=== PATIENT | female | born 1955 | race Caucasian/White ===

== ENCOUNTER 2016-12-16 14:39 | Outpatient (CLI) | payer OTHER ==
--- NOTE | 2016-12-17 15:39 | Mammography Report ---
DIGITAL SCREENING MAMMOGRAM: 12/16/2016 CLINICAL INDICATION: A 61-year-old nulliparous patient, for screening. COMPARISON: 07/2014, 08/2012, 09/2010, 09/2009. TECHNIQUE: Routine CC and MLO projections were obtained of the breasts. FINDINGS: The breasts again demonstrate heterogeneously dense fibroglandular parenchyma bilaterally. Coarse and punctate, typically benign calcifications are present. No suspicious masses, clustered mi crocalcifications, or regions of architectural distortion are identified. IMPRESSION: BENIGN FINDINGS. RECOMMENDATION: ROUTINE ANNUAL SCREENING UNLESS OTHERWISE CLINICALLY INDICATED. BIRADS CATEGORY 2-BENIGN FINDINGS. STANDARD QUALIFYING STATEMENTS 1. This examination was reviewed with the aid of Computer-Aided Detection (CAD). 2. A negative or benign imaging report should not delay biopsy if clinically suspicious findings are present. Consider surgical consultation if warranted. More than 5% of cancers are not identified by i maging. 3. Dense breasts may obscure an underlying neoplasm. JOB #: [id number] EXT JOB #:[id number]
== END 2016-12-16 14:40 | disposition home or self-care (01) ==
LOC: DI 14:39
PROVIDERS: ATTEND Naturopath
DX: Z12.31 Encounter for screening mammogram for malignant neoplasm of breast (principal)
CPT/HCPCS: 77067

== ENCOUNTER 2016-12-16 14:39 | Outpatient (CLI) | payer OTHER ==
--- NOTE | 2016-12-17 16:15 | DEXA Report ---
DEXA SCAN: 12/16/2016 CLINICAL INDICATION: Postmenopausal TECHNIQUE: Dual energy x-ray absorptiometry (DXA) was performed on a [employer] system. Regions measured are the AP spine, femoral neck, and, if needed, forearm. COMPARISON: None. In accordance with the International Society for Clinical Densitometry (ISCD) guidelines, data from previous exams may be reanalyzed using current recommendations and techniques. This is done to allow a more accurate basis for comparison with the current study. FINDINGS The data for the lumbar spine is as follows: REGION BMD (g/cm/cm) T-SCORE Z-SCORE L1 0.866 -2.2 -0.8 L2 0.846 -3.0 -1.6 L3 0.979 -1.8 -0.4 L4 0.955 -2.0 -0.7 TOTAL 0.914 -2.2 -0.8 NOTE: All evaluable vertebrae are used for classification. The data for the hip is as follows: REGION BMD (g/cm/cm) T-SCORE Z-SCORE Neck 0.660 -2.7 -1.4 TOTAL 0.705 -2.4 -1.3 IMPRESSION: THE WHO CLASSIFICATION BASED ON THE INTERNATIONAL REFERENCE STANDARD IS OSTEOPOROSIS. THE FRACTURE RISK IS HIGH. RECOMMENDATION: Patients with diagnosis of osteoporosis or osteopenia should have regular bone mineral density assessment. For those eligible for Medicare, routine testing is allowed once every 2 years. Testing frequency can be increased for patients who have rapidly progressing disease or for those who are receiving medical therapy to restore bone mass. COMMENT: World Health Organization (WHO) definitions for osteoporosis and osteopenia: NORMAL BMD: T-score at -1.0 or higher, fracture risk is low. OSTEOPENIA BMD: T-score between -1.0 and -2.5, fracture risk is increased. OSTEOPOROSIS BMD: T-score at -2.5 or lower, fracture risk high. National Osteoporosis Foundation recommends: 1. Obtain adequate dietary calcium (at least 1200 mg per day) and vitamin D (400 -800 international units per day). 2. Participate, as appropriate, in regular weightbearing and muscle- strengthening exercise. 3. Avoid tobacco use and reduce alcohol and caffeine intake. 4. For more detailed information see the website at www.NOF.org. MTDD
== END 2016-12-16 14:40 | disposition home or self-care (01) ==
LOC: DI 14:39
PROVIDERS: ATTEND Naturopath
DX: Z13.820 Encounter for screening for osteoporosis (principal); M81.0 Age-related osteoporosis without current pathological fracture
CPT/HCPCS: 77080

== ENCOUNTER 2017-11-26 12:05 | Outpatient (CLI) | payer OTHER ==
--- NOTE | 2017-11-26 13:19 | XRAY Report ---
Reason: LEFT TOE PINKY PAIN Procedure Date: 11/26/2017 Accession Number: [id number] / [id number] Procedure: XR - Toe(s) LT CPT Code: FULL RESULT: EXAM: LEFT TOE RADIOGRAPHY EXAM DATE: 11/26/2017 01:08 PM. CLINICAL HISTORY: LEFT TOE PINKY PAIN. COMPARISON: None. TECHNIQUE: 3 views. FINDINGS: Bones: No acute fracture. Joints: Normal. No subluxation. Soft Tissues: Mild soft tissue swelling. IMPRESSION: No acute osseus abnormality. RADIA
== END 2017-11-26 12:06 | disposition home or self-care (01) ==
LOC: DI 12:05
PROVIDERS: ATTEND Physician Assistant
DX: M79.675 Pain in left toe(s) (principal)
CPT/HCPCS: 73660

== ENCOUNTER 2018-01-05 18:50 | Outpatient (CLI) | payer OTHER ==
--- NOTE | 2018-01-06 10:15 | Ultrasound Report ---
Reason: ABNORMAL VAGINAL BLEEDING Procedure Date: 01/05/2018 Accession Number: [id number] / [id number] Procedure: US - Pelvic w/Transvaginal CPT Code: FULL RESULT: EXAM: PELVIC ULTRASOUND EXAM DATE: 01/05/2018 07:19 PM. CLINICAL HISTORY: Postmenopausal bleeding. COMPARISON: None. TECHNIQUE: Realtime transabdominal pelvic scan performed to identify the uterus and adnexa and as an overview of other pelvic structures, followed by transvaginal scan to provide greater detail of the uterus and adnexa, with static image documentation. FINDINGS: Uterus: 7.4 x 4.6 x 4.0 cm, volume 70.8 cc. Anteverted position. Normal overall size and echotexture. Masses: Process Safety Specialist uterine fibroids include the followin. 0.9 x 0.9 x 0.8 cm anterior fundal hypoechoic mass. 2. 0.9 x 1.3 x 0.9 cm posterior fundal hypoechoic mass. 3. 2.5 x 2.3 x 2.2 cm anterior hypoechoic mass. Endometrium: 12.2 mm. No focal endometrial mass or polyp. Endometrium is diffusely thickened and mildly hyperemic. Cervix: Unremarkable. Right Ovary: Ovary not seen. No adnexal abnormality. Limitation secondary to bowel gas. Left Ovary: Ovary not seen. No adnexal abnormality. Limitation secondary to bowel gas. Free Fluid: None. Other: None. IMPRESSION: 1. Heterogeneous and thickened endometrium measures 12.7 mm. No focal mass. Vascularity noted. Differential includes hyperplasia versus endometrial carcinoma. If symptoms persist, recommend endometrial sampling. 2. Multiple uterine fibroids. 3. Neither ovary seen. No adnexal lesions. RADIA
== END 2018-01-05 18:51 | disposition home or self-care (01) ==
LOC: DI 18:50
PROVIDERS: ATTEND Internal Medicine
DX: N93.9 Abnormal uterine and vaginal bleeding, unspecified (principal); D25.9 Leiomyoma of uterus, unspecified
CPT/HCPCS: 76830; 76856

== ENCOUNTER 2018-02-07 17:58 | Outpatient (CLI) | payer OTHER ==
[2018-02-07 18:24] LABS: BASOPHILS # (AUTO) 0.1 10^3/uL (0.0-0.1); BASOPHILS % (AUTO) 0.9 %; EOSINOPHILS # (AUTO) 0.2 10^3/uL (0.0-0.7); EOSINOPHILS % (AUTO) 2.7 %; HGB - HEMOGLOBIN 14.6 g/dL (12.0-16.0); LYMPHOCYTES # (AUTO) 2.5 10^3/uL (1.5-3.5); LYMPHOCYTES % (AUTO) 35.6 %; MEAN CORPUSCULAR HEMOGLOBIN 31.2 pg (27.0-31.0); MEAN CORPUSCULAR HGB CONC 34.3 g/dL (32.0-36.0); MEAN CORPUSCULAR VOLUME 90.9 fL (81.0-99.0); MEAN PLATELET VOLUME 7.1 fL (7.9-10.8); MONOCYTES # (AUTO) 0.5 10^3/uL (0.0-1.0); MONOCYTES % (AUTO) 7.9 %; NEUTROPHILS # (AUTO) 3.7 10^3/uL (1.5-6.6); NEUTROPHILS % (AUTO) 52.9 %; PLT - PLATELET COUNT 343 10^3/uL (130-450); RED BLOOD COUNT 4.67 10^6/uL (4.20-5.40); RED CELL DISTRIBUTION WIDTH 13.6 % (12.0-15.0); WHITE BLOOD COUNT 6.9 x10^3/uL (4.8-10.8)
[2018-02-07 18:38] LABS: ALBUMIN 4.5 g/dL (3.2-5.5); ALBUMIN/GLOBULIN RATIO 1.4 (1.0-2.2); BILIRUBIN,TOTAL 0.8 mg/dL (0.2-1.0); CALCIUM 9.5 mg/dL (8.5-10.3); CREATININE 0.6 mg/dL (0.4-1.0); TOTAL PROTEIN 7.8 g/dL (6.7-8.2)
[2018-02-07 19:20] LABS: BILIRUBIN,URINE NEGATIVE (NEGATIVE); GLUCOSE, URINE (UA) NEGATIVE (NEGATIVE); KETONES,URINE (UA) TRACE mg/dL (NEGATIVE); LEUKOCYTE ESTERASE, URINE TRACE (NEGATIVE); NITRITE,URINE NEGATIVE (NEGATIVE); OCCULT BLOOD,URINE MODERATE (NEGATIVE); PH,URINE 5.5 PH (5.0-7.5); PROTEIN,URINE NEGATIVE (NEGATIVE); UROBILINOGEN,URINE 0.2 (NORMAL) E.U./dL (NORMAL)
[2018-02-07 19:33] LABS: CLARITY,URINE CLEAR (CLEAR)
== END 2018-02-07 17:59 | disposition home or self-care (01) ==
LOC: LAB 17:58
PROVIDERS: ATTEND Obstetrics & Gynecology
DX: Z01.812 Encounter for preprocedural laboratory examination (principal); N95.0 Postmenopausal bleeding; N83.00 Follicular cyst of ovary, unspecified side
CPT/HCPCS: 36415; 80053; 81003; 85025; 86850; 86900; 86901

== ENCOUNTER 2018-02-07 20:52 | Outpatient (CLI) | payer OTHER | END 2018-02-07 20:53 | disposition home or self-care (01) | LOC: LAB 20:52 | PROVIDERS: ATTEND Internal Medicine | DX: Z53.9 Procedure and treatment not carried out, unspecified reason (principal) ==

== ENCOUNTER 2018-02-08 11:51 | Day surgery (SDC) | payer OTHER ==
--- NOTE | 2018-02-08 02:14 | HISTORY & PHYSICAL EXAMINATION ---
DATE OF SERVICE: 02/08/2018 Physician: Kvng Huertas MD DIAGNOSES 1. Postmenopausal bleeding. 2. Thickened endometrium (12 mm). 3. Multiple uterine leiomyoma. 4. Failed endometrial biopsy attempt in the office. 5. Stenotic/contorted endocervix. INTENDED PROCEDURE: Diagnostic hysteroscopy with endometrial stripping using MyoSure device, possible myomectomy; endocervical curettage. HISTORY OF PRESENT ILLNESS: Patient is a 63-year-old 1, para 0-0-1-0 woman who notes bouts of postmenopausal bleeding and subsequent transvaginal ultrasound documented a 12 mm endometrial stripe. An attempt at office EMB was done, but her multiple fibroids distorted and blocked the endocervical passage despite a cervical dilation attempted in the office. The office EMB was very painful, prompting hysteroscopy. PAST MEDICAL HISTORY: Asthma, which is currently quiescent. PAST SURGICAL HISTORY 1. Termination of in 1980. 2. Attempted endometrial biopsy on 01/17/2018. ALLERGIES: PET DANDER AND POLLEN. MEDICATIONS: Misoprostol 400 mcg per vagina the day prior to surgery. REVIEW OF SYSTEMS: No fevers, chills, weakness or recent unaccounted for weight change. REVIEW OF SYSTEMS HEENT: Negative except for postnasal drip. CARDIOVASCULAR: Negative. RESPIRATORY: Currently negative, asthma quiescent. GASTROINTESTINAL: Negative. UROGENITAL: Reference HPI. No UTI symptoms. MUSCULOSKELETAL: Negative. SKIN: Negative. NEUROLOGIC: Negative. PSYCHIATRIC: Negative. ENDOCRINE: Negative. HEMATOLOGIC LYMPHATIC: Negative. The patient reports no easy bleeding tendencies. FAMILY HISTORY: Depression and alcoholism. Mother alcoholism, sister osteoporosis, grandmother asthma, grandmother arthritis, grandfather lung cancer. SOCIAL HISTORY: No drug, tobacco or alcohol use. 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 PHYSICAL EXAMINATION GENERAL: Well groomed, pleasant. No distress, alert and oriented. VITAL SIGNS: Weight 152 pounds, 63 inches, blood pressure 118/76. SKIN: Normal color and turgor, without rashes. HEENT: Head atraumatic. No thyromegaly. EOMI. Good dentition. NECK: Supple. CARDIOVASCULAR: Regular rate and rhythm. No murmur, no gallop. LUNGS: No wheezes, rales. ABDOMEN: Nondistended. No guarding. Normal bowel sounds. No evident herniation. PELVIC: Vulva: No lesions, slight atrophy. Vagina: Cystocele. Cervix: No cervical motion or tenderness, stenotic os. Uterus: Mobile, slightly enlarged. Adnexa: Could not feel any masses or tenderness noted. EXTREMITIES: Normal range of motion. No deformities or evident arthritides. IMPRESSION: Postmenopausal bleeding with endometrial thickening. The patient has documented postmenopausal bleeding with significantly thickened endometrium that requires tissue diagnosis. However, fibroids have contorted the endocervical canal. We will use preoperative Cytotec to soften the cervical tissue to ease dilation to access the endometrium. PLAN 1. Preoperative Cytotec. 2. If the canal cannot be easily negotiated, may request ultrasound to help guide dilation to the endometrial cavity. 3. Once in the endometrial cavity, we will use MyoSure to denude as much of the cavity as possible. Additionally, if there are any submucosal fibroids found, they will be shelled out at the same time. The patient had a detailed preoperative informed consent session. She is aware of the risk of blood loss, transfusion, infection, perforation, fluid transfer. She is aware that the dilation phase and hysteroscope insertion phase will probably be difficult increasing the possibility of perforation. If perforation occurs laparoscopy will be necessary to ensure there is no traumatic damage to internal viscera. She is also aware that if extreme hemorrhage is encountered and not controlled, there is a possibility of a hysterectomy. This is not felt to be likely. ACOG Brochure on hysteroscopy was reviewed. TD: 02/07/2018 19:02 MARITZA
[~2018-02-08 11:51] MED LIST: BUPIVACAINE 0.25%-EPI 1:200000 PF 30 ML VIAL ONE
[2018-02-08] MEDS ORDERED: LACTATED RINGERS 1,000 ML IV ONE ×2 (12:34→16:00)
--- NOTE | 2018-02-08 14:16 | ANESTHESIA ---
Pre-Anesthesia VS, & Labs - Diagnosis Post menopausal bleeding - Procedure Diagnostic hysteroscopy Vital Signs: Temp Pulse Resp BP Pulse Ox 36.1 C L 72 18 147/82 H 98 02/08/18 12:04 02/08/18 12:04 02/08/18 12:04 02/08/18 12:04 02/08/18 12:04 Height 5 ft 3 in Weight (kg) 67.7 kg - NPO >8 hours Last Fluid Intake: water at 1000 - Is Patient ?: No - Lab Results Lab results reviewed: No Home Medications and Allergies Home Medications: Ambulatory Orders FLUoxetine [PROzac] 10 mg PO DAILY 02/08/18 Fluticasone [Flonase] 1 sprays ASHLEY DAILY 02/08/18 Mometasone/Formoterol [Dulera 100 Mcg/5 Mcg Inhaler] 8.8 gm IH 02/08/18 Thyroid,Pork [Nature-Throid] 48.75 mg PO 02/08/18 FLUoxetine [PROzac] 10 mg PO DAILY 02/08/18 Fluticasone [Flonase] 1 sprays ASHLEY DAILY 02/08/18 Mometasone/Formoterol [Dulera 100 Mcg/5 Mcg Inhaler] 8.8 gm IH 02/08/18 Thyroid,Pork [Nature-Throid] 48.75 mg PO 02/08/18 Anes History & Medical History - Anesthetic History Anesthesia Complications: reports: No previous complications Family history of Anesthesia Complications: Denies Family history of Malignant Hyperthermia: Denies - Medical History Cardiovascular: reports: None Pulmonary: reports: Asthma Gastrointestinal: reports: None Urinary: reports: None Neuro: reports: None Musculoskeletal: reports: Osteoarthritis Endocrine/Autoimmune: reports: None Blood Disorders: reports: None Skin: reports: None Smoking Status: Never smoker Psychosocial: reports: No issues indicated - Surgical History General: Colonoscopy Eyes Ears Nose Throat (EENT): Tonsil/Adenoidectomy Exam General: Alert Dental: TMJ Mouth Opening: Greater than 4 Fingerbreadths Neck Mobility: Normal Mallampati classification: II Thyromental Distance: 4-6 cm Respiratory: Lungs clear, Normal breath sounds Cardiovascular: Regular rate Mental/Cognitive Status: Alert/Oriented X3 Cognitive Status: Within normal limits Plan Anesthesia Type: General Consent for Procedure(s) Verified and Reviewed: Yes Code Status: Attempt Resuscitation ASA classification: 1-Healthy patient Is this case an emergency?: No
[2018-02-08] MEDS ORDERED: fentaNYL 100 MCG/2 ML VIAL IVP ONE (16:05)
[2018-02-08] MEDS ORDERED: LIDOCAINE-MPF 2% 5 ML VIAL IM ONE (16:05)
[2018-02-08] MEDS ORDERED: PROPOFOL 200 MG/20 ML VIAL IVP ONE (16:05)
[2018-02-08] MEDS ORDERED: ONDANSETRON 4 MG/2 ML VIAL IVP ONE (16:05)
[2018-02-08] MEDS ORDERED: MIDAZOLAM 2 MG/2 ML VIAL IVP ONE (16:05)
[2018-02-08] MEDS ORDERED: DEXAMETHASONE 4 MG/ML VIAL IVP ONE (16:05)
[2018-02-08] MEDS ORDERED: KETOROLAC 30 MG/ML VIAL ONE (16:43)
[2018-02-08] MEDS ORDERED: ONDANSETRON 4 MG/2 ML VIAL ONE (16:50)
[2018-02-08] MEDS: HYDROmorphone 1 MG/ML CARPUJECT ONE ×2 (16:54→17:06)
--- NOTE | 2018-02-08 17:21 | OPERATIVE REPORT ---
Operative Report - General Pre-Op Diagnosis: Postmenopausal bleeding and thickened endometrium on ultrasound Procedure Performed: Diagnostic hysteroscopy; hysteroscopic excision of tumor using Myosure; hysteroscopic myomectomy with mild Myosure Post Op Diagnosis: Uterine leiomyoma; filiform endometrial tumor, await pathology - Procedure Note Primary Surgeon: Kvng Huertas MD, FACOG Anesthesia Provider: Michael Goss, certified nurse lifestyle coordinator Anesthesia Technique: General ET tube Pathology: Endometrial shavings & Myomectomy specimens sent IV Fluids (mL): 800 Estimated Blood Loss (mL): 50 Urine Output (mL): 0 (Patient straight catheter prior to procedure) Complications: None - Other Other Information/Narrative: Prior to procedure I met the patient and her in the preop holding all room and reviewed indications, mechanics and risk/benefits. All questions were answered. Informed consent documents signed. Patient was placed on the OR table in the supine position. She was uneventfully induced and intubated. She was prepped and draped in his customary sterile fashion. She was moved to the low dorsal lithotomy position on mobile stirrups. Timeout briefing was done per protocol. Weighted speculum was placed in the posterior vagina and the cervix well visualized. Anterior cervical lip was grasped with single-tooth tenaculum. Serial application of Hegar probes was used to dilate the endocervix to size 6. Hysteroscope was then inserted through the endocervical canal but partially blocked by an anterior fibroid. Myosure device was then used to shave down that fibroid in order to gain access into the endometrial cavity. The endometrial cavity was assessed: small fibroids were found and a significant Endometrial tumor in the fundus of the uterus. The tumor had a filiform appearance and is uncertain if it was hyperplasia or malignancy. Myosure device was then used to shave the tumor and obtain an adequate pathological specimen. A obscuring fibroid in the cavity was then removed using my Myosure. The procedure was completed. All instruments were removed from the vagina. Fluid deficit was 700. Vaginal packing was placed. All sponge needle and instrument counts were confirmed as correct. Patient was uneventfully awakened from general anesthesia and taken to the recovery room in good condition. Intraoperative photos and findings were reviewed with the family. Patient is discharged to home and will be seen next week for review of final pathology. Warning sign and callback instructions were given. Patient is to take Motrin 600 mg every 6 hours for pain.
--- NOTE | 2018-02-08 17:34 | Discharge Plan ---
Discharge Plan Disposition: 01 Home, Self Care Condition: Good Diet: Regular Activity Restrictions: Activity as Tolerated Shower Restrictions: No Driving Restrictions: No Weight Bearing: Full Weight No Smoking: If you smoke, Please STOP! Call for help. Follow-up with: Kvng Huertas MD [Provider Admit Priv/Credential] -
[2018-02-08 17:43] VITALS: BP 128/62
[2018-02-08] MEDS ORDERED: IBUPROFEN 600 MG TABLET PO SCH (18:00)
[2018-02-09] MEDS ORDERED: DOCUSATE SODIUM 250 MG CAPSULE PO SCH (09:00)
[2018-02-09] MEDS ORDERED: LACTULOSE 10 GM /15 ML UDC PO SCH (09:00)
== END 2018-02-08 11:52 | disposition home or self-care (01) ==
LOC: SDS 11:51
PROVIDERS: ATTEND Obstetrics & Gynecology
PROC: 0UB98ZZ Excision of Uterus, Via Natural or Artificial Opening Endoscopic (ICD-10-PCS; principal; 2018-02-08 13:00)
DX: C54.1 Malignant neoplasm of endometrium (principal); D25.9 Leiomyoma of uterus, unspecified; N88.2 Stricture and stenosis of cervix uteri; N95.0 Postmenopausal bleeding; J45.909 Unspecified asthma, uncomplicated
CPT/HCPCS: 58558; J1170; J7120

== ENCOUNTER 2018-02-18 10:37 | Outpatient (CLI) | payer OTHER ==
[2018-02-18] MEDS ORDERED: IOPAMIDOL-300 100 ML VIAL IVP ONE ×2 (10:38→11:42)
[2018-02-18] MEDS ORDERED: IOPAMIDOL-300 100 ML VIAL ONE (10:47)
--- NOTE | 2018-02-18 14:17 | CT Report ---
Reason: MALIGNANT NEOPLASM OF ENDOMETRIUM Procedure Date: 02/18/2018 Accession Number: [id number] / [id number] Procedure: CT - Abdomen/Pelvis W/ CPT Code: FULL RESULT: EXAM: CT ABDOMEN AND PELVIS EXAM DATE: 02/18/2018 11:44 AM. CLINICAL HISTORY: MALIGNANT NEOPLASM OF ENDOMETRIUM. COMPARISONS: Pelvic ultrasound from 01/05/2018. TECHNIQUE: Routine helical CT imaging was performed through the abdomen and pelvis. IV contrast: 100 cc Isovue-300. Enteric contrast: Yes. Reconstructions: Coronal and sagittal. In accordance with CT protocol optimization, one or more of the following dose reduction techniques were utilized for this exam: automated exposure control, adjustment of mA and/or KV based on patient size, or use of iterative reconstructive technique. FINDINGS: Lung Bases: Unremarkable. Liver: There is mild diffuse low attenuation, compatible with steatosis. No focal lesions are demonstrated. Gallbladder/Bile Ducts: Multiple gallstones demonstrated. Gallbladder is decompressed. Proximal common bile duct measures 8 mm (series 5, image 25). This is mildly dilated; however, no intrahepatic ductal dilation is demonstrated. No filling defects demonstrated in the distal common bile duct. Spleen: Within normal limits. Pancreas: Unremarkable. Adrenal Glands: No nodules. Kidneys: Subcentimeter hypoattenuating focus in the interpolar region of the right kidney (series 3, image 27) is too small to characterize. Kidneys otherwise unremarkable. Peritoneal Cavity/Bowel: No evidence of bowel obstruction or inflammation. Appendix is within normal limits. There is diverticulosis, greatest in the sigmoid colon. No evidence for acute diverticulitis. Pelvic Organs: There is a partially calcified fibroid in the anterior aspect of the lower uterine segment/body, measuring approximately 3.9 x 3.7 cm (series 3, image 61). There is additional density in the posterior uterine fundus (series 3, image 61), which may represent smaller fibroid. The endometrium is not well evaluated by CT. However, no gross endometrial thickening appreciated. No pelvic adenopathy or free fluid. Urinary bladder is unremarkable. Vasculature: No abdominal aortic aneurysm. Bones: No suspicious osseous lesion. Other: No retroperitoneal adenopathy. IMPRESSION: 1. Endometrium is not well evaluated by CT but does not appear grossly thickened. 2. No findings suspicious for metastatic disease in the abdomen or pelvis. 3. Fibroid uterus. 4. Cholelithiasis. 5. Mild dilation of the proximal common bile duct without intrahepatic biliary ductal dilation. This may represent normal variant configuration. However, suggest correlation with serum bilirubin. 6. Mild hepatic steatosis. RADIA
== END 2018-02-18 10:38 | disposition home or self-care (01) ==
LOC: DI 10:37
PROVIDERS: ATTEND Obstetrics & Gynecology
DX: C54.1 Malignant neoplasm of endometrium (principal); D25.9 Leiomyoma of uterus, unspecified; K80.20 Calculus of gallbladder without cholecystitis without obstruction; K76.0 Fatty (change of) liver, not elsewhere classified
CPT/HCPCS: 74177; Q9967

== ENCOUNTER 2018-04-01 11:16 | Outpatient (CLI) | payer OTHER | END 2018-04-01 11:17 | disposition home or self-care (01) | LOC: RT 11:16 | PROVIDERS: ATTEND Obstetrics & Gynecology Gynecologic Oncology | DX: Z01.810 Encounter for preprocedural cardiovascular examination (principal); C54.1 Malignant neoplasm of endometrium | CPT/HCPCS: 93005 ==

== ENCOUNTER 2018-09-13 09:57 | Outpatient (CLI) | payer OTHER ==
--- NOTE | 2018-09-14 09:56 | MRI Report ---
Reason: R SHOULDER PAIN Procedure Date: 09/13/2018 Accession Number: [id number] / [id number] Procedure: MRI - Shoulder RT W/O CPT Code: FULL RESULT: EXAM: RIGHT SHOULDER MRI WITHOUT CONTRAST EXAM DATE: 09/13/2018 11:59 AM. CLINICAL HISTORY: Right shoulder pain. COMPARISON: None. TECHNIQUE: Multiplanar, multisequence T1-weighted and fluid-sensitive sequences of the shoulder without contrast. Other: None. FINDINGS: Acromioclavicular Region: The acromion is type II. AC joint is moderately osteoarthritic. Some synovial hypertrophic changes are present, and there is a small joint effusion. The coracoacromial and coracoclavicular ligaments are intact. Some bursal fluid is present. Glenohumeral Region: No subluxation. No effusion or loose bodies. The articular cartilage is unremarkable. The glenohumeral ligaments and joint capsule are unremarkable. Bone Marrow: No fracture, marrow edema or bone lesions. Labrum: Some abnormal increased T2 signal is seen at the superior margin of the labrum. Series 501 image 11. Musculature/Rotator Cuff: No acute partial-thickness undersurface tear involves about 90% of the anterior undersurface of the supraspinatus. Series 701 image 20, series 501 image 6. Remainder of the supraspinatus is thickened and shows some increased T2 signal. Infraspinatus likewise is thickened with increased T2 signal. Subscapularis and teres minor are normal. Biceps Tendon: The long head of the biceps tendon and biceps chapo are intact. Other: The subcutaneous tissues are unremarkable. IMPRESSION: 1. Type II unipartite undersurface osseous acromion shape. AC joint is moderately osteoarthritic. Synovial hypertrophic changes are present, and there is a small joint effusion. Some bursal fluid also noted. 2. Some increased T2 signal at the undersurface of the superior margin of the labrum near the biceps labral attachment. This may be a type I SLAP lesion characterized without contrast in the joint. 3. Partial-thickness undersurface tear involves the anterior distal 90% of the supraspinatus. Remainder of the supraspinatus and infraspinatus also show some moderate tendinitis. Subscapularis and teres minor are normal. 4. Biceps tendon has a normal appearance. Articular cartilage also appears unremarkable. RADIA
== END 2018-09-13 09:58 | disposition home or self-care (01) ==
LOC: DI 09:57
PROVIDERS: ATTEND Internal Medicine
DX: M19.011 Primary osteoarthritis, right shoulder (principal); M75.101 Unspecified rotator cuff tear or rupture of right shoulder, not specified as traumatic

== ENCOUNTER 2019-02-16 09:10 | Outpatient (CLI) | payer OTHER ==
--- NOTE | 2019-02-19 11:05 | Mammography Report ---
Reason: ROUTINE MAMMO Procedure Date: 02/16/2019 Accession Number: [id number] / [id number] Procedure: MGN - Screening Mammo Dig Bilat CPT Code: Final Report FULL RESULT: EXAM: Screening Mammo Dig Bilat DATE: 02/16/2019 9:33 AM CLINICAL HISTORY: The patient is an asymptomatic 64-year-old female. Nulliparous. Personal history of endometrial carcinoma. No reported family history of breast cancer. TECHNIQUE: (B) - Bilateral CC and MLO views were obtained. COMPARISON: 12/16/2016, 08/01/2014, 08/23/2012 PARENCHYMAL PATTERN: (D) - The breasts demonstrate heterogeneously dense fibroglandular parenchyma bilaterally. This limits mammographic sensitivity. FINDINGS: The pattern of nodular asymmetry is stable given positional variation. Loosely grouped and scattered calcifications again noted bilaterally. There are no suspicious masses, calcifications, or areas of distortion. IMPRESSION: Benign findings. BI-RADS category 2. RECOMMENDATION: (ANNUAL) - Recommend routine annual screening mammography. BI-RADS CATEGORY: (2) - Benign Findings. STANDARD QUALIFYING STATEMENTS: 1. This examination was not reviewed with the aid of Computer-Aided Detection (CAD). 2. A negative or benign imaging report should not preclude biopsy if clinically suspicious findings are present. 3. Dense breasts may obscure an underlying neoplasm.
== END 2019-02-16 09:11 | disposition home or self-care (01) ==
LOC: DI.N 09:10
PROVIDERS: ATTEND Internal Medicine
DX: Z12.31 Encounter for screening mammogram for malignant neoplasm of breast (principal)
CPT/HCPCS: 77067

== ENCOUNTER 2020-05-14 10:42 | Outpatient (CLI) | payer MEDICARE, OTHER ==
--- NOTE | 2020-05-14 16:03 | DEXA Report ---
PROCEDURE: Dexa Spine and/or Hip INDICATIONS: OSTEOPOROSIS TECHNIQUE: Dual energy x-ray absorptiometry (DXA) was performed on a [employer] System. Regions measur ed are the AP Spine, femoral neck, and if needed forearm. COMPARISON: 11/26/2016. FINDINGS: Lumbar Spine: Bone Mineral Density 0.924 g/cm/cm,T score -2.1, osteopenia Left Hip: Bone Mineral Density 0.782 g/cm/cm,T score -1.8, osteopenia Left Femoral Neck: Bone Mineral Density 0.645 g/cm/cm, T score -2.8, osteoporosis (T score greater or equal to -1.0: NORMAL) (T score from -1.1 to -2.4: OSTEOPENIA) (T score less than or equal to -2.5 to: OSTEOPOROSIS) Impression: Osteoporosis. Bone mineral density has increased approximately 10.9% in the interval sin e prior exam obtained 12/08/2016. Patients with diagnosis of osteoporosis or osteopenia should have regular bone mineral density assess ment. For those eligible for Medicare, routine testing is allowed once every 2 years. Testing frequ ency can be increased for patients who have rapidly progressing disease or for those who are receivin g medical therapy to restore bone mass. Reviewed by: Danii Roberts MD, PhD on 05/14/2020 4:01 PM PST Approved by: Danii Roberts MD, PhD on 05/14/2020 4:01 PM PST Station ID: [id number]
== END 2020-05-14 10:43 | disposition home or self-care (01) ==
LOC: DI 10:42
PROVIDERS: ATTEND Internal Medicine
DX: M81.0 Age-related osteoporosis without current pathological fracture (principal)

== ENCOUNTER 2020-06-04 09:11 | Day surgery (SDC) | payer MEDICARE, OTHER ==
[2020-06-04] MEDS ORDERED: LACTATED RINGERS 1,000 ML IV ONE ×2 (09:41→10:45)
[2020-06-04] MEDS ORDERED: MIDAZOLAM 2 MG/2 ML VIAL ONE ×3 (10:13→10:34)
[2020-06-04] MEDS ORDERED: fentaNYL 250 MCG/5 ML VIAL ONE (10:13)
[2020-06-04 11:20] VITALS: BP 128/75
== END 2020-06-04 09:12 | disposition home or self-care (01) ==
LOC: SDS 09:11
PROVIDERS: ATTEND Surgery
DX: Z12.11 Encounter for screening for malignant neoplasm of colon (principal); K57.30 Diverticulosis of large intestine without perforation or abscess without bleeding; K64.8 Other hemorrhoids; Z86.010 Personal history of colon polyps
CPT/HCPCS: G0105; J3010; J7120

== ENCOUNTER 2020-06-18 09:24 | Outpatient (CLI) | payer MEDICARE, OTHER ==
--- NOTE | 2020-06-19 08:24 | Mammography Report ---
BILATERAL DIGITAL SCREENING MAMMOGRAM 3D/2D: 06/18/2020 CLINICAL: Routine screening. Comparison is made to exams dated: 02/16/2019 mammogram, 12/16/2016 mammogram, 08/01/2014 mammogram, mammogram, and 10/13/2010 mammogram - [facility]. The tissue of both breast s is heterogeneously dense. This may lower the sensitivity of mammography. There is a developing 1.5 cm asymmetry with a spiculated margin and punctate calcifications in the ri ght breast at 11 o'clock posterior depth. There is a possible irregular asymmetry with a spiculated margin in the left breast middle depth cent ral to the nipple seen on the craniocaudal view only. No other significant masses or calcifications are seen in either breast. IMPRESSION: INCOMPLETE: NEEDS ADDITIONAL IMAGING EVALUATION The developing 1.5 cm asymmetry in the right breast at 11 o'clock posterior depth is indeterminate. Additional views with possible ultrasound are recommended. The possible irregular asymmetry in the left breast middle depth central to the nipple seen on the cr aniocaudal view only is indeterminate. Additional views with possible ultrasound are recommended. This exam was interpreted at Station ID: [id number]. NOTE: For mammograms, a report in lay terms will be sent to the patient. Approximately 15% of breast malignancies will not be visualized mammographically. In the management of a palpable breast mass, a negative mammogram must not discourage biopsy of a clinically suspicious lesion. Electronically Signed By: Maia goodwin/:06/18/2020 10:25:12 ACR BI-RADS Category 0: Incomplete 3340F PARENCHYMAL PATTERN: (D) - The breast(s) demonstrate(s) heterogeneously dense fibroglandular parchivoy ma. BI-RADS CATEGORY: (0) - 0 Mammo and [place] [id number] Immediate follow-up LATERALITY: (B)
== END 2020-06-18 09:25 | disposition home or self-care (01) ==
LOC: DI.N 09:24
PROVIDERS: ATTEND Internal Medicine
DX: Z12.31 Encounter for screening mammogram for malignant neoplasm of breast (principal); R92.8 Other abnormal and inconclusive findings on diagnostic imaging of breast

== ENCOUNTER 2020-07-10 08:23 | Outpatient (CLI) | payer MEDICARE, OTHER ==
--- NOTE | 2020-07-11 09:36 | Mammography Report ---
BILATERAL DIGITAL DIAGNOSTIC MAMMOGRAM 3D/2D: 07/10/2020 CLINICAL: Patient returns today to evaluate a focal asymmetry in the left breast. Patient returns for magnification views of microcalcifications in the right breast. Comparison is made to exams dated: 06/18/2020 mammogram, 02/16/2019 mammogram, 12/16/2016 mammogram, a nd 08/01/2014 mammogram - [facility]. The tissue of both breasts is heterogeneously dense. This may lower the sensitivity of mammography. There is a 1.2 cm round mass with a spiculated margin and punctate calcifications in the right breast at 10 o'clock posterior depth. There is a possible asymmetry in the left breast middle depth central to the nipple seen on the crani ocaudal view only. This is not seen in additional views. No other significant masses or calcifications are seen in either breast. IMPRESSION: INCOMPLETE: NEEDS ADDITIONAL IMAGING EVALUATION 1) The 1.2 cm round mass in the right breast at 10 o'clock posterior depth is indeterminate. -A targeted ultrasound is recommended and will immediately follow. 2) Possible asymmetry in the left breast does not persist on additional views and is benign. This exam was interpreted at Station ID: [id number]. NOTE: For mammograms, a report in lay terms will be sent to the patient. Approximately 15% of breast malignancies will not be visualized mammographically. In the management of a palpable breast mass, a negative mammogram must not discourage biopsy of a clinically suspicious lesion. Electronically Signed By: aLlo Wilson M.D. slc/:07/10/2020 12:05:23 ACR BI-RADS Category 0: Incomplete 3340F PARENCHYMAL PATTERN: (D) - The breast(s) demonstrate(s) heterogeneously dense fibroglandular parchivoy ma. BI-RADS CATEGORY: (0) - 0 Ultrasound [id number] Immediate follow-up LATERALITY: (B)
--- NOTE | 2020-07-11 09:36 | Ultrasound Report ---
LIMITED ULTRASOUND OF RIGHT BREAST AND AXILLA: 07/10/2020 CLINICAL: Patient returns for magnification views of microcalcifications in the right breast. Comparison is made to exams dated: 07/10/2020 mammogram, 06/18/2020 mammogram, 02/16/2019 mammogram, mammogram, 08/01/2014 mammogram, and 08/23/2012 mammogram - [facility]. Color flow and real-time ultrasound of the right breast 9 o'clock, and axilla regions were performed. Bacon scale images of the real-time examination were reviewed. There is a 1 cm x 0.8 cm x 0.7 cm round mass with a spiculated margin in the right breast at 9 o'cloc k posterior depth 10 cm from the nipple. This round mass is hypoechoic. This correlates with mammog silvina findings. Color flow imaging demonstrates that there is vascularity present. No significant abnormalities were seen sonographically in the right axilla. IMPRESSION: SUSPICIOUS OF MALIGNANCY The 1 cm x 0.8 cm x 0.7 cm mass in the right breast 9:00 10 cm from the nipple is at a high suspicion for malignancy. An ultrasound guided biopsy is recommended. Exam findings were discussed with the patient by Dr. Art Hodgson. This exam was interpreted at Station ID: [id number]. Electronically Signed By: Lalo Wilson M.D. slc/:07/10/2020 12:22:37 Ultrasound BI-RADS: 4c High suspicion of malignancy BI-RADS CATEGORY: (4c) - High Susp None [id number] Immediate follow-up LATERALITY: ()
== END 2020-07-10 08:24 | disposition home or self-care (01) ==
LOC: DI 08:23
PROVIDERS: ATTEND Internal Medicine
DX: N63.15 Unspecified lump in the right breast, overlapping quadrants (principal)

== ENCOUNTER 2020-07-21 12:47 | Outpatient (CLI) | payer MEDICARE, OTHER ==
[~2020-07-21 12:47] MED LIST changes: +BUFFERED LIDOCAINE 10 ML SYRINGE ONE; -BUPIVACAINE 0.25%-EPI 1:200000 PF 30 ML VIAL ONE; +LIDOCAINE MPF 1%-EPI 1:200000 30 ML VIAL ONE
[2020-07-21] MEDS ORDERED: BUFFERED LIDOCAINE 10 ML SYRINGE IU ONE (15:45)
--- NOTE | 2020-07-22 09:17 | Mammography Report ---
UNILATERAL RIGHT DIGITAL DIAGNOSTIC MAMMOGRAM 3D/2D: 07/21/2020 CLINICAL: Post right breast ultrasound biopsy, clip placement imaging. Comparison is made to exams dated: 07/10/2020 mammogram, 06/18/2020 mammogram, 02/16/2019 mammogram, mammogram, and 08/01/2014 mammogram - [facility]. The tissue of right dean st is heterogeneously dense. A coil biopsy site marker has been placed at the margin of the mass biop sied under US guidance earlier same day. IMPRESSION: POST PROCEDURE MAMMOGRAM FOR MARKER PLACEMENT Expected positioning of the biopsy site marker at the mass margin 9-10: position right breast. This exam was interpreted at Station ID: [id number]. NOTE: For mammograms, a report in lay terms will be sent to the patient. Approximately 15% of breast malignancies will not be visualized mammographically. In the management of a palpable breast mass, a negative mammogram must not discourage biopsy of a clinically suspicious lesion. Electronically Signed By: David Medina M.D. sdh/:07/21/2020 16:03:58 ACR BI-RADS Category Post-procedure mammogram for marker placement PARENCHYMAL PATTERN: (D) - The breast(s) demonstrate(s) heterogeneously dense fibroglandular paralicia urena. BI-RADS CATEGORY: () - Unspecified - other recall n/a LATERALITY: (B)
--- NOTE | 2020-07-24 12:23 | Ultrasound Report ---
ULTRASOUND GUIDED BIOPSY RIGHT BREAST USING VACUUM DEVICE WITH MARKING DEVICE INSERTED AND POST MAMMO GRAPHIC AND ULTRASOUND IMAGIN07/21/2020 CLINICAL: Right breast mass. PATIENT CONSENT: Risks (minor bleeding, infection, vasovagal reaction and repeat procedure), benefits and alternatives were explained to the patient and written informed consent was obtained. Correlation is made to exams dated: 07/10/2020 ultrasound, 07/10/2020 mammogram, 06/18/2020 mammogram, 02/16/2019 mammogram, 12/16/2016 mammogram, and 08/01/2014 mammogram - [facility]. An ultrasound guided biopsy using real-time ultrasound was performed for the concerning 1 cm x 0.8 cm x 1.1 cm circumscribed round solid mass located in the right breast at 10 o'clock anterior depth. T his was described on the previous mammography and ultrasound reports. The skin was prepped in the us ual manner. Local anesthetic was administered to the access site. A skin jonathan was made in the breas t. The abnormality was approached from the lateral aspect. A 10 gauge biopsy needle was placed roly cent to the abnormality under ultrasound guidance. Once the needle was documented to be in the corre ct location, four specimens were obtained using the Mammotome biopsy system. The patient received ad ditional local anesthetic during the procedure. A mammo clip was inserted into the biopsy cavity. A skin closure strip and a sterile dressing were applied to the access site. Post procedure mammograp hic and ultrasound imaging demonstrates the location device at the targeted area and partial removal of the abnormality. The specimens were sent to the laboratory for pathological analysis. IMPRESSION: ULTRASOUND GUIDED BIOPSY MALIGNANT Ultrasound guided biopsy of the 1 cm x 0.8 cm x 1.1 cm solid mass in the right breast at 10 o'clock a nterior depth was successful. Pathology indicates malignant invasive ductal carcinoma (ID). Pathol ogy results are concordant with mammography and ultrasound findings. Surgical and oncologic consultation are recommended. This exam was interpreted at Station ID: [id number]. David Curry M.D. [facility],ddp/:07/24/2020 11:00:40 BI-RADS CATEGORY: () - Unspecified - other recall n/a LATERALITY: (B)
== END 2020-07-21 12:48 | disposition home or self-care (01) ==
LOC: DI 12:47
PROVIDERS: ATTEND Internal Medicine
DX: C50.411 Malignant neoplasm of upper-outer quadrant of right female breast (principal); Z17.0 Estrogen receptor positive status [ER+]
CPT/HCPCS: 19083; 88305; 88342; 88360

== ENCOUNTER 2020-10-20 08:01 | Day surgery (SDC) | payer MEDICARE, OTHER ==
[2020-10-20] MEDS ORDERED: LACTATED RINGERS 1,000 ML IV ONE ×2 (08:10→14:09)
[2020-10-20] MEDS ORDERED: NALOXONE 0.4 MG/ML VIAL IVP PRN (09:00)
[2020-10-20] MEDS ORDERED: fentaNYL 100 MCG/2 ML VIAL IVP PRN (09:00)
[2020-10-20] MEDS ORDERED: HYDROmorphone 0.5 MG/0.5 ML SYRINGE IVP PRN (09:00)
[2020-10-20] MEDS ORDERED: ONDANSETRON 4 MG/2 ML VIAL IVP PRN ×2 (09:00→14:32)
[2020-10-20] MEDS ORDERED: ATROPINE ABBOJECT 1 MG/10 ML SYRINGE IVP PRN (09:00)
[2020-10-20] MEDS ORDERED: ePHEDrine 50 MG/ML VIAL IVP PRN (09:00)
[2020-10-20] MEDS ORDERED: MORPHINE 2 MG/ML CARPUJECT IVP PRN (09:00)
[2020-10-20] MEDS ORDERED: METOCLOPRAMIDE 10 MG/2 ML VIAL IVP PRN (09:00)
[2020-10-20] MEDS ORDERED: LACTATED RINGERS 1,000 ML IV SCH (09:00)
--- NOTE | 2020-10-20 09:00 | ANESTHESIA ---
Pre-Anesthesia VS, & Labs - Diagnosis R multifocal breast CA - Procedure BILAT simple mastectomy, R sentinel node biopsy Vital Signs: Temp Pulse Resp BP Pulse Ox 36 C L 60 16 150/88 H 99 10/20/20 08:13 10/20/20 08:13 10/20/20 08:13 10/20/20 08:13 10/20/20 08:13 Height: 5 ft 3 in Weight (kg): 68.2 kg Body Mass Index: 26.6 BMI Classification: Overweight - NPO >8 hours Last Fluid Intake: sips w/thyroid med 0700 - Is Patient ?: No - Lab Results Lab results reviewed: Yes Home Medications and Allergies Home Medications: Ambulatory Orders Fluticasone Propion/Salmeterol [Wixela 250-50 Inhub] 1 each IH BID 10/14/20 Assorter Laundry Thyroid 15 - 30 mg PO DAILY 10/14/20 Vitamin D3 And K2 1 tab PO DAILY 10/14/20 FLUoxetine [PROzac] 10 mg PO DAILY 02/08/18 Fluticasone [Flonase] 1 sprays ASHLEY DAILY 02/08/18 Fluticasone Propion/Salmeterol [Wixela 250-50 Inhub] 1 each IH BID 10/14/20 Assorter Laundry Thyroid 15 - 30 mg PO DAILY 10/14/20 Vitamin D3 And K2 1 tab PO DAILY 10/14/20 Allergies/Adverse Reactions: Allergies Allergy/AdvReac Type Severity Reaction Status Date / Time No Known Drug Allergies Allergy Verified 10/14/20 15:35 Anes History & Medical History - Anesthetic History Anesthesia Complications: reports: No previous complications Family history of Anesthesia Complications: Denies Family history of Malignant Hyperthermia: Denies - Medical History Cardiovascular: reports: None Pulmonary: reports: Asthma Gastrointestinal: reports: Colon polyps Urinary: reports: None Neuro: reports: None Musculoskeletal: reports: None Endocrine/Autoimmune: reports: HyPOthyroidism Blood Disorders: reports: None Skin: reports: None Smoking Status: Never smoker - Surgical History General: reports: Colonoscopy Eyes Ears Nose Throat (EENT): reports: Tonsil/Adenoidectomy Gynecologic: reports: Hysterectomy Exam General: Alert, Oriented x3, Cooperative Dental: WNL Mouth Openin Fingerbreadth Neck Mobility: Normal Mallampati classification: II Thyromental Distance: 4-6 cm Respiratory: Lungs clear, Normal breath sounds, No respiratory distress Cardiovascular: Regular rate Neurological: Normal speech Mental/Cognitive Status: Alert/Oriented X3, Normal for patient Cognitive Status: Within normal limits Plan Anesthesia Type: General Consent for Procedure(s) Verified and Reviewed: Yes Code Status: Attempt Resuscitation ASA classification: 3-Severe systemic disease Is this case an emergency?: No
[2020-10-20] MEDS ORDERED: LIDOCAINE 1%-EPI 1:100000 20 ML MDV SUBQ ONE (11:32)
[2020-10-20] MEDS ORDERED: BUPIVACAINE 0.5% PF 30 ML VIAL SUBQ ONE ×2 (11:32)
--- NOTE | 2020-10-20 12:42 | Nuclear Medicine Report ---
PROCEDURE: Lymph Node Scintigraphy INDICATIONS: MULTIFOCAL RIGHT BREAST CA RADIOPHARMACEUTICAL: 0.5-1.0 mCi Millipore filtered Tc-99m sulfur colloid. TECHNIQUE: The area around the nipple was prepped and draped in a sterile fashion. Tc-99m sulfur colloid was in jected intra-dermally in the outer edge of the areola in the right breast. Images were obtained subs equently. A body contour outline was obtained. FINDINGS: There is a lymph node in the ipsilateral axilla, which is marked on the skin and the images for refer ring physician. IMPRESSION: A sentinel lymph node is identified in the ipsilateral right axilla. Reviewed by: Chasity Singletary MD on 10/20/2020 12:41 PM PDT Approved by: Chasity Singletary MD on 10/20/2020 12:41 PM PDT Station ID: [id number]
--- NOTE | 2020-10-20 13:55 | OPERATIVE REPORT ---
Operative Report - General Procedure Date: 10/20/20 Planned Procedure: Bilateral mastectomy with right sentinel node dissection Pre-Op Diagnosis: Right breast cancer Procedure Performed: Bilateral mastectomy with right sentinel node dissection Post Op Diagnosis: Right breast cancer - Procedure Note Primary Surgeon: Pop Anesthesia Provider: EMILIANO Portillo Anesthesia Technique: General LMA Pathology: 1. Left breast 2. Right sentinel node 3. 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 Following successful induction of general endotracheal anesthesia, appropriate padding of all bony prominences, and placement of appropriate monitors, the right chest and axilla were prepped and draped in the standard surgical fashion. A timeout was held per scope protocol. All elements of the surgical safety checklist were followed before, during, and after the procedure. We began the procedure on the left, unaffected breast. Half percent Marcaine plain mixed with 2% lidocaine with epinephrine was infiltrated throughout the subcutaneous tissue of the breast and beneath the pectoralis major and minor muscles As well as portions of the serratus anterior. This was to done to provide a field block. An incision was fashioned elliptically. Measurements were made and incisions designed to create as nearly identical scars as possible. This left breast incision was then completed with a 10 blade scalpel. It was carried through the skin and subcutaneous tissue. Traction and countertraction were then used to divide the underlying breast tissue from the overlying dermis from the level of the incision to the clavicle superiorly medially to the sternum inferiorly to the inframammary fold and lateral to the posterior axillary line. Once a circumferential dissection had been obtained, the breast was removed in a medial to lateral fashion. All perforators were addressed with sutures or with cautery prior to division. The breast was then marked with a short stitch superior and a long stitch lateral. The wound was irrigated with warm water and aspirated free of all fluid and particulate matter. It was checked once again for hemostasis and touched up in just a couple of places with cautery. A 19 Spanish Danny drain was placed in the inframammary pocket and brought out inferior medially. It was sewn into place. The skin edges were then closed in an interrupted fashion with Vicryl suture and the Endo Close device was used to approximate the skin. The incision was treated with Dermabond and allowed to dry completely. T The wound was covered and we turned our attention to the right side. The site of the brightest node had been marked in radiology with 2 skin marker axis. The neoprobe was used to identify the site of greatest uptake at level 2 in the patient's axilla. The superior portion of the elliptical incision was completed to give access to the axillary node packed. Dissection was carried to the pectoralis mucsle and the node packet identified. The sentinel node was easily identified. It was large and firm. It was carefully dissected free from surrounding structures sharply, all lymphatics and vasculature were addressed with clips prior to division. The node was liberated into the field. 10-second counts are recorded. Survey of the axilla revealed a background count of 13 and no additional targets for dissection. The axilla was examined for hemostasis. It was irrigated with warm water and aspirated free of fluid and particulate matter. Background in the axilla was checked and found to be 30. Background in the room was 0. All sponge, needle, and instrument counts were correct at the conclusion of the case. The patient was allowed to wake from anesthesia without difficulty and taken to the postanesthesia care unit in good condition. We now turned our attention to the completion of the right breast mastectomy. Again we began the procedure by infiltrating half percent Marcaine plain throughout the subcutaneous tissue of the breast and beneath the pectoralis major and minor muscles as well as portions of the serratus anterior. This incision was then completed with a 10 blade scalpel. It was carried through the skin and subcutaneous tissue. Traction and countertraction were then used to divide the underlying breast tissue from the overlying dermis from the level of the incision to the clavicle superiorly medially to the sternum inferiorly to the inframammary fold and lateral to the posterior axillary line. Once a circumferential dissection had been obtained, the breast was removed in a medial to lateral fashion. All perforators were addressed with sutures or with cautery prior to division. The breast was then marked with a short stitch superior and a long stitch lateral. The wound was irrigated with warm water and aspirated free of all fluid and particulate matter. It was checked once again for hemostasis. A 19 Spanish Danny drain was placed in the inframammary pocket and brought out inferior medially. It was sewn into place. The skin edges were then closed in an interrupted fashion with Vicryl suture and the Endo Close device was used to approximate the skin. All of the wounds were dressed with Dermabond. Once the Dermabond was dry, Alicia wound managing devices were applied to both sides.Good seals were obtained. All sponge, needle, and instrument counts were correct at the conclusion of the case. The patient was allowed to wake from anesthesia without difficulty and taken to the postanesthesia care unit in good condition.
[2020-10-20] MEDS ORDERED: SODIUM CHLORIDE FLUSH 0.9% 10 ML SYRINGE IVP PRN (14:29)
[2020-10-20] MEDS ORDERED: HYDROmorphone 1 MG/ML CARPUJECT IVP PRN (14:32)
[2020-10-20] MEDS ORDERED: LORazepam 2 MG/ML VIAL IVP PRN (14:32)
[2020-10-20] MEDS ORDERED: DEXTROSE 5%-0.9% NACL 1,000 ML IV SCH (15:00)
--- NOTE | 2020-10-20 16:17 | ANESTHESIA POST OP EVALUATION ---
Anesthesia Post Eval - Post Anesthesia Eval Vitals: Last Vital Signs Temp 36.6 C 10/20/20 15:30 Pulse 61 10/20/20 15:30 Resp 18 10/20/20 15:30 BP 131/80 H 10/20/20 15:30 Pulse Ox 97 10/20/20 15:30 CV Function Including HR & BP: Stable Pain Control: Satisfactory Nausea & Vomiting: Negative Mental Status: Baseline Respiratory Status: Airway Patent Hydration Status: Satisfactory Anesthesia Complications: None
[2020-10-20] MEDS: KETOROLAC 30 MG/ML VIAL IVP SCH ×2 (16:36→22:22)
[2020-10-20] MEDS: SODIUM CHLORIDE FLUSH 0.9% 10 ML SYRINGE IVP SCH (16:36)
[2020-10-20] MEDS: ACETAMINOPHEN 1,000 MG/100 ML 100 ML IV SCH (18:10)
[2020-10-20] MEDS: oxyCODONE 5 MG TABLET PO PRN (20:32)
[2020-10-21] MEDS: SODIUM CHLORIDE FLUSH 0.9% 10 ML SYRINGE IVP SCH ×2 (00:30→04:19)
[2020-10-21] MEDS: ACETAMINOPHEN 1,000 MG/100 ML 100 ML IV SCH ×2 (00:36→06:23)
[2020-10-21] MEDS: oxyCODONE 5 MG TABLET PO PRN (01:12)
[2020-10-21] MEDS: KETOROLAC 30 MG/ML VIAL IVP SCH (04:18)
[2020-10-21] MEDS ORDERED: PANTOPRAZOLE 40 MG VIAL IVP SCH (07:00)
[2020-10-21 07:41] VITALS: BP 101/63
[2020-10-21] MEDS ORDERED: ONDANSETRON 4 MG/2 ML VIAL IVP PRN (08:28)
[2020-10-21] MEDS ORDERED: ACETAMINOPHEN 325 MG TABLET PO PRN (08:28)
[2020-10-21] MEDS ORDERED: oxyCODONE 5 MG TABLET PO PRN (08:28)
--- NOTE | 2020-10-21 08:28 | PROVIDER PROGRESS NOTE ---
Subjective - General Procedure Date: 10/20/20 Post Op Days: 1 Procedure Performed: Bilateral Mastectomy - Review of Systems Wound/Incisions: positive: Healing well, Dressing dry and intact Drain Type: Danny Drain Output Description: serosanguinous General: positive: No symptoms HEENT: positive: No symptoms Pulmonary: positive: No symptoms Cardiovascular: positive: No symptoms Gastrointestinal: positive: No symptoms Genitourinary: positive: No symptoms Musculoskeletal: positive: No symptoms Skin: positive: No symptoms - Other Other Information/Narrative: Feeling well and eating breakfast. Pain was well controlled over night. No nausea. Has prescriptions provided before surgery. Objective - Patient Data Vital Signs: Vital Signs x48h Temp Pulse Resp BP Pulse Ox 10/21/20 07:12 36.8 C 59 L 16 101/63 96 10/21/20 04:29 36.8 C 59 L 16 119/67 97 Weight: Weight 10/19/20 10/20/20 10/21/20 23:59 23:59 23:59 Weight (kg) 68.2 kg Intake & Output: Intake and Output Totals x24h 10/19/20 10/20/20 10/21/20 23:59 23:59 23:59 Intake Total 1337.5 450 Output Total 530 80 Balance 807.5 370 - Current Medications Current Medications: Current Medications Generic Name Dose Route Start Last Admin Trade Name Freq PRN Reason Stop Dose Admin Dextrose/Sodium Chloride 1,000 mls @ 50 mls/hr 10/20/20 15:00 10/20/20 22:34 D5ns IV 50 mls/hr .Q20H KATY Infusion Acetaminophen 100 mls @ 400 mls/hr 10/20/20 18:00 10/21/20 06:38 Ofirmev IV 10/22/20 17:59 Infused Q6HR KATY Infusion Ketorolac Tromethamine 30 mg 10/20/20 16:00 10/21/20 04:18 Ketorolac 30 Mg/Ml Vial IVP 10/25/20 15:59 30 mg Q6H KATY Administration Oxycodone HCl 5 mg 10/20/20 14:32 10/21/20 01:12 Oxycodone 5 Mg Tablet PO 5 mg Q3HR PRN Administration PAIN Pantoprazole Sodium 40 mg 10/21/20 07:00 10/21/20 06:20 Pantoprazole 40 Mg Vial IVP 40 mg QDAC KATY Administration Sodium Chloride 10 ml 10/20/20 17:00 10/21/20 04:19 Sodium Chloride Flush 0.9% 10 Ml Syringe IVP 10 ml 0100,0900,1700 KATY Administration Sodium Chloride 10 ml 10/20/20 14:29 10/21/20 06:21 Sodium Chloride Flush 0.9% 10 Ml Syringe IVP 10 ml PRN PRN Administration NEEDED PER PROVIDER ORDERS - Physical Exam Wound/Incisions: positive: Dressing dry and intact General Appearance: positive: No acute distress, Alert Eyes Bilateral: positive: Normal inspection, PERRL, EOMI ENT: positive: ENT inspection nml Neck: positive: Nml inspection Respiratory: positive: No respiratory distress, Breath sounds nml Cardiovascular: positive: Regular rate & rhythm Abdomen: positive: Non-tender, Nml bowel sounds Skin: positive: Color nml Neurologic/Psychiatric: positive: Oriented x3 ABX Reporting Has patient been on IV antibiotics over the past 48 hours?: No Impression/Plan - Problem List Problem List: Discharge to home in the care of family. Will need to follow up on Tuesday for Proveena removal and follow up with me in 2 weeks.
[2020-10-21] MEDS ORDERED: FLUoxetine 10 MG CAPSULE PO SCH (09:00)
[2020-10-21] MEDS ORDERED: FLUTICASONE NASAL SPRAY NAS SCH (09:00)
[2020-10-21] MEDS ORDERED: ENOXAPARIN 40 MG/0.4 ML SYRINGE SUBQ SCH (09:00)
[2020-10-25] MEDS ORDERED: IBUPROFEN 600 MG TABLET PO PRN (16:00)
== END 2020-10-21 11:00 | disposition home or self-care (01) ==
LOC: DI 08:01 → MS2 15:12 → DI 10-21 11:00
PROVIDERS: ATTEND Surgery
PROC: 07B50ZX Excision of Right Axillary Lymphatic, Open Approach, Diagnostic (ICD-10-PCS; 2020-10-20)
PROC: 0HTV0ZZ Resection of Bilateral Breast, Open Approach (ICD-10-PCS; principal; 2020-10-20 10:00)
DX: C50.411 Malignant neoplasm of upper-outer quadrant of right female breast (principal); Z40.01 Encounter for prophylactic removal of breast; Z15.89 Genetic susceptibility to other disease; J45.909 Unspecified asthma, uncomplicated; M81.0 Age-related osteoporosis without current pathological fracture; E03.9 Hypothyroidism, unspecified
CPT/HCPCS: 19303; 38525; 78195; A9270; J0131; J1170; J1650; J7120

== ENCOUNTER 2021-02-21 10:38 | Emergency (ER) | payer MEDICARE, OTHER ==
--- NOTE | 2021-02-21 11:36 | XRAY Report ---
PROCEDURE: Hand 3 View RT INDICATIONS: Trauma TECHNIQUE: 3 views of the hand acquired. COMPARISON: None. FINDINGS: Bones: No fractures or dislocations. There is moderate degeneration at the first carpometacarpal roxana nt. No suspicious bony lesions. Soft tissues: No suspicious soft tissue calcifications. IMPRESSION: 1. No fracture or dislocation. Reviewed by: Prabhu Curry MD on 02/21/2021 10:34 AM [facility] [[email or web address]] Approved by: Prabhu Curry MD on 02/21/2021 10:34 AM [facility] [[email or web address]] Station ID: [id number]
--- NOTE | 2021-02-21 12:04 | ED Physician Documentation ---
PD HPI UPPER EXT INJURY - Stated complaint Stated Complaint: RT THUMB INJURY - Chief complaint Chief Complaint: Trauma Ext - History obtained from History obtained from: Patient - History of Present Illness Location: Right, Finger (thumb) Type of injury: Fall Where injury occurred: Home Timing - onset: How many days ago (2) Timing - duration: Days (2) Timing - details: Abrupt onset, Still present Improved by: Rest, Immobilization Worsened by: Moving, Palpating Associated symptoms: Swelling, Discolored Contributing factors: No: Anticoagulated Similar symptoms before: Has not had sx before Recently seen: Not recently seen - Additonal information Additional information: 66-year-old female stepped off a curb tripped forward and fell onto her right hand injuring her right thumb. She has swelling and redness and pain over the MCP joint. She is having a hard time opening a door with her hand . 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 HEENT: Tonsil/Adenoidectomy - Present Medications Home Medications: Ambulatory Orders Medication Instructions Recorded Confirmed FLUoxetine [PROzac] 10 mg PO DAILY 02/08/18 01/13/21 Fluticasone [Flonase] 1 sprays ASHLEY DAILY 02/08/18 01/13/21 Fluticasone Propion/Salmeterol 1 each IH BID 10/14/20 01/13/21 [Wixela 250-50 Inhub] Developmental Therapist Thyroid 15 - 30 mg PO DAILY 10/14/20 01/13/21 Vitamin D3 And K2 1 tab PO DAILY 10/14/20 01/13/21 - Allergies Allergies/Adverse Reactions: Allergies Allergy/AdvReac Type Severity Reaction Status Date / Time No Known Drug Allergies Allergy Verified 02/21/21 10:48 - Social History Does the pt smoke?: No Smoking Status: Never smoker PD ED PE NORMAL - Vitals Vital signs reviewed: Yes (hypertensive ) - General General: Alert and oriented X 3, No acute distress, Well developed/nourished - HEENT HEENT: Atraumatic, PERRL, EOMI - Respiratory Respiratory: No respiratory distress - Derm Derm: Normal color, Warm and dry, No rash - Extremities Extremities: No deformity, Other (point tenderness is maximal at the MCP joint on the right hand. There is non-blanching erythema to the base of the thumb. ) - Neuro Neuro: Alert and oriented X 3, systems manager 2-12 intact, No motor deficit, No sensory deficit, Normal speech Eye Opening: Spontaneous Motor: Obeys Commands Verbal: Oriented GCS Score: 15 - Psych Psych: Normal mood, Normal affect Results - Vitals Vitals: Vital Signs - 24 hr 02/21/21 02/21/21 10:46 12:09 Temperature 36.1 C L 36.5 C Heart Rate 60 60 Respiratory 16 16 Rate Blood Pressure 155/95 H 140/88 H O2 Saturation 98 98 Oxygen O2 Source Room air - Rads (name of study) right hand Radiology: Prelim report reviewed (Impression: 1. No fracture or dislocation.), EMP read indepedently, See rad report Procedures - Splint (location) right thumb Splint applied by: Tech Type of splint: Fiberglass, Thumb spica Other: Patient tolerated well, No complications, Neurovascular intact, Good alignment PD MEDICAL DECISION MAKING - ED course Complexity details: reviewed results, re-evaluated patient, considered differential, d/w patient ED course: 66-year-old female with a fall has sprained her right thumb she is placed into a thumb spica. Departure - Departure Disposition: 01 Home, Self Care Clinical Impression: Sprain of right thumb Qualifiers: Encounter type: initial encounter Sprain of finger site: metacarpophalangeal joint Qualified Code(s): S63.641A - Sprain of metacarpophalangeal joint of right thumb, initial encounter Condition: Stable Instructions: ED Sprain Finger Follow-Up: Edith Hwang MD [Primary Care Provider] - Comments: Anna, today it does not appear there is any fracture to your thumb. The sprain may take 1 to 3 weeks to heal. My recommendation is to wear the splint we applied for the next 4 days continuously after that period of time it is okay to remove it to check range of motion and when you are able to open a doorknob with his hand without pain you can leave the splint off. Discharge Date/Time: 02/21/21 12:09
[2021-02-21 12:11] VITALS: BP 140/88
== END 2021-02-21 12:09 | disposition home or self-care (01) ==
LOC: ED 10:38
DX: S63.641A Sprain of metacarpophalangeal joint of right thumb, initial encounter (principal); W17.89XA Other fall from one level to another, initial encounter; Y92.480 Sidewalk as the place of occurrence of the external cause
CPT/HCPCS: 29125; 99282; 99283

== ENCOUNTER 2021-07-23 08:00 | Outpatient (CLI) | payer MEDICARE, OTHER ==
[2021-07-23 19:05] LABS: BASOPHILS % (AUTO) 0.5 %; EOSINOPHILS # (AUTO) 0.2 10^3/uL (0.0-0.7); EOSINOPHILS % (AUTO) 2.3 %; HCT - HEMATOCRIT 45.9 % (37.0-47.0); HGB - HEMOGLOBIN 14.8 g/dL (12.0-16.0); LYMPHOCYTES # (AUTO) 1.6 10^3/uL (1.5-3.5); LYMPHOCYTES % (AUTO) 20.2 %; MEAN CORPUSCULAR HEMOGLOBIN 29.7 pg (27.0-31.0); MEAN CORPUSCULAR HGB CONC 32.2 g/dL (32.0-36.0); MEAN PLATELET VOLUME 9.6 fL (7.9-10.8); MONOCYTES # (AUTO) 0.5 10^3/uL (0.0-1.0); MONOCYTES % (AUTO) 6.9 %; NEUTROPHILS # (AUTO) 5.4 10^3/uL (1.5-6.6); PLT - PLATELET COUNT 354 10^3/uL (130-450); RED BLOOD COUNT 4.99 10^6/uL (4.20-5.40); RED CELL DISTRIBUTION WIDTH 13.8 % (12.0-15.0); WHITE BLOOD COUNT 7.7 x10^3/uL (4.8-10.8)
[2021-07-23 19:20] LABS: ALBUMIN 4.3 g/dL (3.2-5.5); ALBUMIN/GLOBULIN RATIO 1.2 (1.0-2.2); ALKALINE PHOSPHATASE 75 IU/L (42-121); ALT ALANINE AMINOTRANSFERASE 27 IU/L (10-60); AST ASPARTATE AMINOTRANSFERASE 18 IU/L (10-42); BILIRUBIN,TOTAL 0.8 mg/dL (0.2-1.0); BUN - BLOOD UREA NITROGEN 15 mg/dL (6-20); CALCIUM 9.6 mg/dL (8.5-10.3); CARBON DIOXIDE - CO2 27 mmol/L (21-32); CHLORIDE 100 mmol/L (101-111); CHOLESTEROL 277 mg/dL; CREATININE 0.6 mg/dL (0.4-1.0); GFR - MDRD 100 (>89); GLUCOSE 100 mg/dL (70-100); HDL CHOLESTEROL 93 mg/dL; LDL CHOLESTEROL,CALCULATED 164 mg/dL; LDL/HDL RATIO 1.8 (<4.4); POTASSIUM 4.2 mmol/L (3.5-5.0); SODIUM 136 mmol/L (135-145); TOTAL PROTEIN 7.9 g/dL (6.7-8.2); TRIGLYCERIDES 98 mg/dL; VLDL CHOLESTEROL 20 mg/dL
[2021-07-23 19:32] LABS: THYROID STIMULATING HORMONE 1.7 uIU/mL (0.34-5.60)
[2021-07-23 19:34] LABS: FREE T4 (FREE THYROXINE) 0.84 ng/dL (0.58-1.64)
== END 2021-07-23 23:59 | disposition home or self-care (01) ==
LOC: LAB.R 08:00
PROVIDERS: ATTEND Internal Medicine
DX: Z00.00 Encounter for general adult medical examination without abnormal findings (principal); E55.9 Vitamin D deficiency, unspecified; C54.1 Malignant neoplasm of endometrium; C50.919 Malignant neoplasm of unspecified site of unspecified female breast; R73.01 Impaired fasting glucose; M81.0 Age-related osteoporosis without current pathological fracture; J45.909 Unspecified asthma, uncomplicated; Z13.6 Encounter for screening for cardiovascular disorders; E02 Subclinical iodine-deficiency hypothyroidism; Z79.899 Other long term (current) drug therapy; F32.9 Major depressive disorder, single episode, unspecified; G62.9 Polyneuropathy, unspecified
CPT/HCPCS: 80053; 80061; 82306; 82607; 83721; 84439; 84443; 85025

== ENCOUNTER 2022-01-26 08:00 | Outpatient (CLI) | payer MEDICARE, OTHER ==
[2022-01-26 16:10] LABS: CREATININE 0.7 mg/dL (0.4-1.0)
== END 2022-01-26 23:59 | disposition home or self-care (01) ==
LOC: LAB 08:00
PROVIDERS: ATTEND Internal Medicine
DX: Z79.899 Other long term (current) drug therapy (principal)
CPT/HCPCS: 36415; 82565

== ENCOUNTER 2022-01-27 11:11 | Outpatient (CLI) | payer MEDICARE, OTHER ==
[2022-01-27] MEDS ORDERED: iohexoL-300 100 ML VIAL ONE (11:39)
[2022-01-27] MEDS ORDERED: DIATRIZOATE MEGLU/DIATRIZO SOD 30 ML BOTTLE PO ONE ×2 (11:39→18:19)
--- NOTE | 2022-01-27 14:13 | CT Report ---
PROCEDURE: CT abdomen and pelvis with contrast INDICATIONS: FEVER, LLQ ABD PAIN, NAUSEA CONTRAST: 100ml Omnipque 300 TECHNIQUE: After the administration of contrast, 5 mm thick sections acquired from the diaphragms to the sym physis. 5 mm thick coronal and sagittal reformats were acquired. For radiation dose reduction, the following was used: automated exposure control, adjustment of mA and/or kV according to patient size . COMPARISON: None. FINDINGS: Lower thorax: The lung bases are clear. Heart size normal. No hiatal hernia. Liver: Hepatic fatty infiltration without focal mass lesion. Normal appendix size. Biliary system: Cholelithiasis present. No pericholecystic inflammatory change Pancreas: Unremarkable without mass or inflammation evident. Spleen: Normal in size and density. Adrenals: Normal morphology and density. Reproductive system: Unremarkable as visualized. Urinary system: Normal renal size and attenuation. No renal calculi, hydronephrosis, or solid mass p resent. Urinary bladder unremarkable. Gastrointestinal system: Multiple diverticula arise from the colon. Wall thickening and pericolonic i nflammatory change noted in the mid: 5. No free air or organized abscess. No bowel obstruction. Appendix: No findings to suggest acute appendicitis. Peritoneal spaces: No mesenteric or retroperitoneal adenopathy. No free air. No free fluid. Vasculature: The IVC, aorta and iliac vasculature are unremarkable. Musculoskeletal: Normal bone mineralization. No acute fractures. Abdominal wall intact without vilma dence of ventral or inguinal hernias. IMPRESSION: 1. Uncomplicated mid sigmoid diverticulitis. No abscess, free air or bowel obstruction. Reviewed by: Jerry Cornejo MD on 01/27/2022 1:11 PM [place] Approved by: Jerry Cornejo MD on 01/27/2022 1:11 PM [facility] Station ID: [id number]
[2022-01-27] MEDS ORDERED: iohexoL-300 100 ML VIAL IVP ONE (18:20)
== END 2022-01-27 11:12 | disposition home or self-care (01) ==
LOC: DI 11:11
PROVIDERS: ATTEND Internal Medicine
DX: R50.9 Fever, unspecified (principal); R10.32 Left lower quadrant pain; R11.0 Nausea; K57.32 Diverticulitis of large intestine without perforation or abscess without bleeding
CPT/HCPCS: 74177; Q9963; Q9967

== ENCOUNTER 2023-03-15 14:11 | Outpatient (CLI) | payer MEDICARE, OTHER ==
--- NOTE | 2023-03-15 15:53 | XRAY Report ---
PROCEDURE: Hip w/Pelvis 2-3V LT INDICATIONS: LEFT HIP PAIN TECHNIQUE: AP pelvis with lateral view(s) of the left hip(s). COMPARISON: None. FINDINGS: Bones: No fractures or dislocations. No suspicious bony lesions. Soft tissues: No suspicious soft tissue calcifications or masses. IMPRESSION: No acute bony abnormality. Reviewed by: Danii Roberts MD, PhD on 03/15/2023 3:52 PM PST Approved by: Danii Roberts MD, PhD on 03/15/2023 3:52 PM PST Station ID: [id number]
== END 2023-03-15 14:12 | disposition home or self-care (01) ==
LOC: DI 14:11
PROVIDERS: ATTEND Internal Medicine
DX: M25.552 Pain in left hip (principal)

== ENCOUNTER 2023-08-11 12:48 | Outpatient (CLI) | payer MEDICARE, OTHER | END 2023-08-11 12:49 | disposition home or self-care (01) | LOC: LAB 12:48 | PROVIDERS: ATTEND Emergency Medicine | DX: R22.42 Localized swelling, mass and lump, left lower limb (principal) | CPT/HCPCS: 36415; 85379 ==

== ENCOUNTER 2023-09-17 09:14 | Outpatient (CLI) | payer MEDICARE, OTHER ==
--- NOTE | 2023-09-19 21:54 | MRI Report ---
Knee RT WO CLINICAL INFORMATION: 68 years of age, Female, R KNEE PAIN. COMPARISON: None Technique: Multisequence, multiplanar MRI of the right knee was performed without intravenous contras t. FINDINGS: Menisci: The medial meniscus is unremarkable. In the lateral meniscus, there is complete maceration o f the anterior horn, extending to the anterior root. Cruciate ligaments: The anterior and posterior cruciate ligaments are intact. MCL/LCL: Grade 1 sprain of the MCL. The biceps femoris tendon is unremarkable. The fibular collateral ligament is unremarkable. The iliotibial band is intact. The popliteus muscle and tendon also appear intact. Extensor mechanism: Mild tendinosis of the distal quadricep tendon. Small distal quadricep enthesophy te. Mild prepatellar subcutaneous edema. Mild tendinosis of distal patellar tendon. Patellofemoral joint: Alignment within the patellofemoral joint is normal. The patellofemoral ligame nts are intact. High-grade chondral irregularity in the median ridge of the patella. Cartilage of the trochlea is unremarkable. Cartilage and bone: In the medial compartment, there is mild chondral thinning in the weightbearing p ortion of the femoral condyle. In the lateral compartment, there is moderate sized area of full-thick ness chondral loss in the nonweightbearing portion of the femoral condyle. There is additional focal high-grade chondral loss in the posterior weightbearing portion of the femoral condyle. There is mode rate sized full-thickness chondral loss in the lateral tibial plateau with associated mild subchondra l marrow edema. Additional mild marrow edema in the tibial eminence, favoring reactive. No acute fracture. Miscellaneous: Large knee effusion with synovitis. Partially ruptured, large popliteal cyst. No intra -articular bodies are identified. Normal muscle signal intensity and morphology. No vascular anomaly. Mild tendinosis of the distal semimembranosus. IMPRESSION: 1.Complete maceration of the anterior horn of the lateral meniscus. 2.Moderate, lateral compartment predominant chondrosis with mild marrow edema in the lateral tibial p lateau. 3.Large knee effusion with synovitis. Partially ruptured, large popliteal cyst. Reviewed by: Wilda Ryan MD on 09/19/2023 9:53 PM PDT Approved by: Wilda Ryan MD on 09/19/2023 9:53 PM PDT Station ID: [id number]
== END 2023-09-17 09:15 | disposition home or self-care (01) ==
LOC: DI 09:14
PROVIDERS: ATTEND Internal Medicine
DX: M23.341 Other meniscus derangements, anterior horn of lateral meniscus, right knee (principal); M25.861 Other specified joint disorders, right knee; M66.0 Rupture of popliteal cyst; M65.9 Synovitis and tenosynovitis, unspecified; Z79.899 Other long term (current) drug therapy